=== PATIENT | male | born 1955 | race African-American/Black ===

== ENCOUNTER 2017-03-25 16:07 | Emergency (ER) | payer SELFPAY ==
[~2017-03-25] VITALS: Ht 180.3 cm; Wt 86.2 kg
[2017-03-25 16:11] VITALS: BP 194/101
[2017-03-25] MEDS ORDERED: DOCUSATE 100 MG/10 ML SOLUTION. AS ONE (16:30)
--- NOTE | 2017-03-25 16:31 | PHYS DOC ---
Past Medical History Past Medical History: Hypertension Past Surgical History: No Surgical History Alcohol Use: None Drug Use: None Adult General Chief Complaint Chief Complaint: EARACHE/EAR PAIN HPI HPI Patient is a 61 year old male with history of hypertension who presents with cerumen impaction to the left ear for 1 week. Patient has tried over-the- counter products with no relief. He has history of hypertension and states he has been out of his medication for 2 weeks. The patient has no chest pain or shortness of breath. Blood pressure is 194/101 in the ED. Review of Systems Review of Systems Constitutional: Denies fever or chills [] Eyes: Denies change in visual acuity, redness, or eye pain [] HENT: Cerumen impaction to the left ear Respiratory: Denies cough or shortness of breath [] Cardiovascular: No additional information not addressed in HPI [] GI: Denies abdominal pain, nausea, vomiting, bloody stools or diarrhea [] : Denies dysuria or hematuria [] Musculoskeletal: Denies back pain or joint pain [] Integument: Denies rash or skin lesions [] Neurologic: Denies headache, focal weakness or sensory changes [] Endocrine: Denies polyuria or polydipsia [] Current Medications Current Medications Current Medications Medications (Trade) Dose Ordered Sig/Rayo Start Time Stop Time Status Last Admin Dose Admin Clonidine HCl (Catapres) 0.2 mg 1X ONCE 03/25/17 16:45 03/25/17 16:46 DC 03/25/17 16:51 0.2 MG Docusate Sodium (Colace Solution) 100 mg 1X ONCE 03/25/17 16:30 03/25/17 16:31 DC 03/25/17 16:49 100 MG Allergies Allergies Allergies Coded Allergies Type Severity Reaction Last Updated Verified No Known Drug Allergies 03/25/17 No Physical Exam Physical Exam Constitutional: Well developed, well nourished, no acute distress, non-toxic appearance. [] HENT: Normocephalic, atraumatic, bilateral external ears normal, oropharynx moist, no oral exudates, nose normal. [] Bilateral ear canals are impacted with moderate amount of cerumen Eyes: PERRLA, EOMI, conjunctiva normal, no discharge. [] Neck: Normal range of motion, no tenderness, supple, no stridor. [] Cardiovascular:Heart rate regular rhythm, no murmur [] Lungs & Thorax: Bilateral breath sounds clear to auscultation [] Abdomen: Bowel sounds normal, soft, no tenderness, no masses, no pulsatile masses. [] Skin: Warm, dry, no erythema, no rash. [] Back: No tenderness, no CVA tenderness. [] Extremities: No tenderness, no cyanosis, no clubbing, ROM intact, no edema. [] Neurologic: Alert and oriented X 3, normal motor function, normal sensory function, no focal deficits noted. [] Psychologic: Affect normal, judgement normal, mood normal. [] Current Patient Data Vital Signs Vital Signs Date Time Temp Pulse Resp B/P (MAP) Pulse Ox O2 Delivery O2 Flow Rate FiO2 03/25/17 16:51 194/101 03/25/17 16:11 98.5 71 18 97 Room Air 98.5 EKG EKG [] Radiology/Procedures Radiology/Procedures [] Course & Med Decision Making Course & Med Decision Making Pertinent Labs and Imaging studies reviewed. (See chart for details) Patient is in the Ed for cerumen impaction. On exam bilateral ear are very impacted. Colace was used to clear some cerumen. Blood pressure was 194/101 on arrival to the ED. Patient has history of hypertension. He states he supposed to be on lisinopril but he will not pay for the medication because it's very expensive. He gets the medication from [facility]. I recommended he transfers the prescription to [facility] to see if the araiza will be cheaper and follows up with his PCP as soon as possible. I gave him Clonidine in the Ed. Dragon Disclaimer Narendra Disclaimer This electronic medical record was generated, in whole or in part, using a voice recognition dictation system. Departure Departure Impression: Primary Impression: Impacted cerumen of both ears Additional Impression: Hypertension Disposition: 01 HOME, SELF-CARE Condition: STABLE Patient Instructions: Cerumen Impaction, Hypertension Additional Instructions: You were seen for bilateral ear cerumen impaction. You can use [id number] Debrox or Colace to cerumen impaction. Your blood pressure was high. Please call your doctor and follow up for high blood pressure and take your blood pressure medicines as prescribed. Problem Qualifiers Additional Impression: Hypertension Hypertension type: unspecified Qualified Codes: I10 - Essential (primary) hypertension MUTBANG ASENCIO APRN Mar 25, 2017 16:31
[2017-03-25] MEDS ORDERED: cloNIDine HCL 0.1 MG TABLET PO ONE (16:45)
== END 2017-03-25 17:51 | disposition home or self-care (01) ==
LOC: ER 16:07
DX: H61.23 Impacted cerumen, bilateral (principal); I10 Essential (primary) hypertension
CPT/HCPCS: 69209; 99283